=== PATIENT | female | born 1990 | race Asian ===

== ENCOUNTER 2023-10-02 00:49 | Emergency (ER) | payer OTHER ==
[~2023-10-02] VITALS: Ht 157.5 cm; Wt 50.0 kg
[2023-10-02 01:21] VITALS: BP 133/88; PULSE 102; RESP 18; O2SAT 98
== END 2023-10-02 01:50 | disposition left against medical advice (07) ==
LOC: ER 00:49
DX: S03.00XA Dislocation of jaw, unspecified side, initial encounter (principal); X58.XXXA Exposure to other specified factors, initial encounter; Y93.89 Activity, other specified; Y92.89 Other specified places as the place of occurrence of the external cause; Y99.8 Other external cause status; Z53.21 Procedure and treatment not carried out due to patient leaving prior to being seen by health care provider
CPT/HCPCS: 99281